=== PATIENT | male | born 1970 | race Caucasian/White ===

== ENCOUNTER 2017-09-01 20:25 | Emergency (ER) | payer MEDICAID, OTHER ==
[~2017-09-01] VITALS: Ht 167.6 cm; Wt 87.0 kg
[2017-09-01 23:37] LABS: BASOPHILS % 0.9 % (0.0-2.0); EOSINOPHILS % 1.2 % (0.0-5.0); HEMATOCRIT. 43.4 % (42.0-52.0); HEMOGLOBIN. 15.6 g/dL (14.0-18.0); LYMPHOCYTES % 22.6 % (20.0-50.0); MEAN CORPUSCULAR VOLUME 86.2 fL (80.0-94.0); MEAN PLATELET VOLUME 8.9 fl (7.4-10.4); MONOCYTES % 9.7 % (2.0-8.0); NEUTROPHILS % 65.6 % (40.0-76.0); PLATELET 141 x1000/uL (130-400); RED BLOOD CELL COUNT 5.04 mill/uL (4.7-6.1); RED CELL DISTRIBUTION WIDTH 13.6 % (11.6-14.6)
[2017-09-01 23:51] LABS: CARBON DIOXIDE 27 mEq/L (21-32); CHLORIDE 102 mEq/L (98-107); ETHANOL BLOOD < 10 mg/dL
[2017-09-02] MEDS ORDERED: CHLORDIAZEPOXIDE 25MG CAPSULE PO ONE
[2017-09-02 00:10] VITALS: BP 128/62
== END 2017-09-02 00:15 | disposition home or self-care (01) ==
LOC: ER 20:25
DX: F10.20 Alcohol dependence, uncomplicated (principal); Y90.0 Blood alcohol level of less than 20 mg/100 ml; R03.0 Elevated blood-pressure reading, without diagnosis of hypertension; E11.9 Type 2 diabetes mellitus without complications
CPT/HCPCS: 36415; 80053; 85025; 99284; G0482

== ENCOUNTER 2020-05-09 22:37 | Emergency (ER) | payer MEDICAID ==
[~2020-05-09] VITALS: Ht 160 cm; Wt 91.0 kg
[2020-05-10] MEDS ORDERED: SODIUM CHLORIDE 0.9% 1,000 ML IV ONE (01:00)
[2020-05-10] MEDS ORDERED: ONDANSETRON HCL 4MG/2ML INJ IV STA (01:00)
[2020-05-10 02:02] LABS: *AMPHETAMINES SCREEN URINE NEGATIVE (NEGATIVE); *BARBITURATES SCREEN URINE NEGATIVE (NEGATIVE); *BENZODIAZEPINES SCREEN URINE NEGATIVE (NEGATIVE); *COCAINE SCREEN URINE NEGATIVE (NEGATIVE); METHADONE URINE SCREEN NEGATIVE (NEGATIVE)
[2020-05-10 02:03] LABS: CANNABINOID URINE SCREEN NEGATIVE (NEGATIVE); OPIATES URINE SCREEN NEGATIVE (NEGATIVE); PHENCYCLIDINE URINE SCREEN NEGATIVE (NEGATIVE)
[2020-05-10 02:20] LABS: CHLORIDE 98 mEq/L (98-107)
[2020-05-10 02:24] LABS: ETHANOL BLOOD 78 mg/dL
[2020-05-10 02:28] LABS: CLARITY URINE CLEAR (CLEAR); COLOR URINE YELLOW (YELLOW); KETONES URINE TRACE (NEGATIVE); LEUKOCYTE ESTERASE URINE NEGATIVE (NEGATIVE); NITRITE URINE NEGATIVE (NEGATIVE); OCCULT BLOOD URINE TRACE (NEGATIVE); PROTEIN URINE 1+ (NEGATIVE); SPECIFIC GRAVITY URINE 1.023 (1.005-1.030); UROBILINOGEN URINE 0.2 E.U./dL (0.2-1.0)
[2020-05-10 02:31] LABS: BASOPHILS % 1.2 % (0.0-2.0); EOSINOPHILS % 0.6 % (0.0-5.0); HEMATOCRIT. 46.2 % (42.0-52.0); HEMOGLOBIN. 16.1 g/dL (14.0-18.0); LYMPHOCYTES % 18.8 % (20.0-50.0); MEAN CORPUSCULAR HEMOGLOBIN 32.4 pg (28.0-32.0); MEAN PLATELET VOLUME 9.7 fl (7.4-10.4); MONOCYTES % 12.4 % (2.0-8.0); PLATELET 106 x1000/uL (130-400); RED BLOOD CELL COUNT 4.97 mill/uL (4.7-6.1); RED CELL DISTRIBUTION WIDTH 14.1 % (11.6-14.6)
[2020-05-10] MEDS ORDERED: POTASSIUM CHLORIDE 20MEQ TABLET SR PO ONE (02:45)
[2020-05-10] MEDS ORDERED: CHLORDIAZEPOXIDE 10MG CAPSULE PO ONE (03:15)
[2020-05-10 03:55] VITALS: BP 160/77
== END 2020-05-10 03:56 | disposition home or self-care (01) ==
LOC: ER 22:37
DX: F10.239 Alcohol dependence with withdrawal, unspecified (principal); T51.0X1A Toxic effect of ethanol, accidental (unintentional), initial encounter; Y90.3 Blood alcohol level of 60-79 mg/100 ml; E11.9 Type 2 diabetes mellitus without complications
CPT/HCPCS: 36415; 80053; 80305; 80320; 81003; 83690; 85025; 96374; 99283; J2405; J7030; G0480

== ENCOUNTER 2021-10-27 11:03 | Inpatient (IN) | payer MEDICAID ==
[~2021-10-27] VITALS: Ht 165.1 cm; Wt 86.3 kg
[2021-10-27] MEDS ORDERED: ONDANSETRON HCL 4MG/2ML INJ IV NR (11:47)
[2021-10-27] MEDS ORDERED: MAGNESIUM/ALUMINUM HYDROXIDE/SIMETHICONE 30ML UDC PO NR (11:47)
[2021-10-27] MEDS ORDERED: SODIUM CHLORIDE 0.9% 1,000 ML IV ONE (12:00)
[2021-10-27 12:17] LABS: BASOPHILS % 0.5 % (0.0-2.0); HEMATOCRIT. 44.5 % (42.0-52.0); HEMOGLOBIN. 15.2 g/dL (14.0-18.0); LYMPHOCYTES % 7.3 % (20.0-50.0); MEAN CORPUSCULAR HEMOGLOBIN 29.9 pg (28.0-32.0); MEAN CORPUSCULAR VOLUME 87.2 fL (80.0-94.0); MEAN PLATELET VOLUME 9.2 fl (7.4-10.4); MONOCYTES % 10.8 % (2.0-8.0); NEUTROPHILS % 81.4 % (40.0-76.0); PLATELET 141 x1000/uL (130-400)
[2021-10-27 12:24] LABS: CHLORIDE 88 mEq/L (98-107)
[2021-10-27 12:29] LABS: ETHANOL BLOOD 14 mg/dL
[2021-10-27] MEDS ORDERED: VISCOUS LIDOCAINE 2% 15 ML UDC PO NR (12:30)
[2021-10-27 12:34] LABS: CREATINE KINASE 868 IU/L (39-308)
[2021-10-27] MEDS ORDERED: CHLORDIAZEPOXIDE 25MG CAPSULE PO NR (12:45)
[2021-10-27] MEDS ORDERED: INSULIN REGULAR (HUMULIN R) 300UNITS/3ML VIAL IV ONE (13:00)
[2021-10-27] MEDS ORDERED: LORAZEPAM 2MG/ML CPJ IV ONE (13:00)
[2021-10-27 17:22] LABS: CLARITY URINE CLEAR (CLEAR); COLOR URINE YELLOW (YELLOW); KETONES URINE NEGATIVE (NEGATIVE); LEUKOCYTE ESTERASE URINE NEGATIVE (NEGATIVE); NITRITE URINE NEGATIVE (NEGATIVE); OCCULT BLOOD URINE TRACE (NEGATIVE); PROTEIN URINE NEGATIVE (NEGATIVE); SPECIFIC GRAVITY URINE 1.009 (1.005-1.030); UROBILINOGEN URINE 0.2 E.U./dL (0.2-1.0)
[2021-10-27 17:34] LABS: *AMPHETAMINES SCREEN URINE NEGATIVE (NEGATIVE); *BARBITURATES SCREEN URINE NEGATIVE (NEGATIVE)
[2021-10-27 17:35] LABS: *BENZODIAZEPINES SCREEN URINE NEGATIVE (NEGATIVE); *COCAINE SCREEN URINE NEGATIVE (NEGATIVE); CANNABINOID URINE SCREEN NEGATIVE (NEGATIVE); METHADONE URINE SCREEN NEGATIVE (NEGATIVE); OPIATES URINE SCREEN NEGATIVE (NEGATIVE); PHENCYCLIDINE URINE SCREEN NEGATIVE (NEGATIVE)
[2021-10-28] VITALS (9 sets, daily range): BP systolic 116–153; BP diastolic 70–94
[2021-10-28] MEDS ORDERED: METF-873 PO (01:23)
[2021-10-28] MEDS ORDERED: ATOR20TA65 PO (01:23)
[2021-10-28] MEDS ORDERED: LISI2.5T47 PO (01:23)
[2021-10-28] MEDS ORDERED: DEXTROSE 50% WATER 50ML SYRINGE IV PRN (01:30)
[2021-10-28] MEDS: LISINOPRIL 20MG TABLET PO SCH (02:26)
[2021-10-28] MEDS: CHLORDIAZEPOXIDE 25MG CAPSULE PO SCH ×3 (05:42→21:06)
[2021-10-28] MEDS ORDERED: LOPERAMIDE HCL 2MG CAPSULE PO PRN (05:45)
[2021-10-28] MEDS: INSULIN LISPRO 100 UNITS/ML SUBCUT SCH ×4 (06:55→21:06)
[2021-10-28 06:56] LABS: BASOPHILS % 0.3 % (0.0-2.0); EOSINOPHILS % 0.3 % (0.0-5.0); HEMATOCRIT. 44.9 % (42.0-52.0); HEMOGLOBIN. 15.4 g/dL (14.0-18.0); LYMPHOCYTES % 14.7 % (20.0-50.0); MEAN CORPUSCULAR HEMOGLOBIN 29.4 pg (28.0-32.0); MEAN CORPUSCULAR VOLUME 86.2 fL (80.0-94.0); MONOCYTES % 12.9 % (2.0-8.0); NEUTROPHILS % 71.8 % (40.0-76.0); PLATELET 119 x1000/uL (130-400); RED BLOOD CELL COUNT 5.22 mill/uL (4.7-6.1); RED CELL DISTRIBUTION WIDTH 14.2 % (11.6-14.6)
[2021-10-28] MEDS: BLOOD SUGAR DIAGNOSTIC STRIP TEST SCH ×4 (07:10→21:07)
[2021-10-28] MEDS: MULTIVITAMINS,THER W-MINERALS TABLET PO SCH (08:05)
[2021-10-28] MEDS: ASPIRIN 81MG TABLET PO SCH (08:05)
[2021-10-28] MEDS: THIAMINE HCL 100MG TABLET PO SCH (08:05)
[2021-10-28] MEDS: FOLIC ACID 1MG TABLET PO SCH (08:05)
[2021-10-28] MEDS: METFORMIN HCL 500MG TABLET PO SCH ×2 (08:05→17:10)
[2021-10-28] MEDS ORDERED: INSULIN GLARGINE UD 100 UNITS/ML SYR SUBCUT SCH (10:00)
[2021-10-28] MEDS ORDERED: ATORVASTATIN CALCIUM 40MG TABLET PO SCH (21:00)
[2021-10-28] MEDS: INSULIN GLARGINE UD 100 UNITS/ML SYR SUBCUT SCH (21:41)
[2021-10-29] VITALS: BP 145/86
[2021-10-29 04:00] VITALS: BP_SYST 137; BP_SYST 99; BP_DIAS 72; BP_DIAS 76
[2021-10-29] MEDS: CHLORDIAZEPOXIDE 25MG CAPSULE PO SCH (05:35)
[2021-10-29] MEDS: INSULIN LISPRO 100 UNITS/ML SUBCUT SCH (06:10)
[2021-10-29] MEDS: BLOOD SUGAR DIAGNOSTIC STRIP TEST SCH (06:11)
[2021-10-29] MEDS ORDERED: THIA100T88 MT (08:03)
[2021-10-29] MEDS ORDERED: INSU100I28 SQ (08:03)
[2021-10-29] MEDS: FOLIC ACID 1MG TABLET PO SCH (08:17)
[2021-10-29] MEDS: ASPIRIN 81MG TABLET PO SCH (08:17)
[2021-10-29] MEDS: MULTIVITAMINS,THER W-MINERALS TABLET PO SCH (08:17)
[2021-10-29] MEDS: THIAMINE HCL 100MG TABLET PO SCH (08:17)
[2021-10-29] MEDS: METFORMIN HCL 500MG TABLET PO SCH (08:17)
[2021-10-29] MEDS: LISINOPRIL 20MG TABLET PO SCH (08:18)
[2021-10-29] MEDS: INSULIN GLARGINE UD 100 UNITS/ML SYR SUBCUT SCH (11:12)
== END 2021-10-29 11:30 | disposition left against medical advice (07) | DRG 770 ==
LOC: ER 11:32 → 8WST 17:20 → EDBEDREQ 17:52 → EDBEDREQTM 17:52 → ENRESERV 20:14
PROVIDERS: ADMIT Internal Medicine; ATTEND Internal Medicine
DX: F10.239 Alcohol dependence with withdrawal, unspecified (principal); R65.10 Systemic inflammatory response syndrome (SIRS) of non-infectious origin without acute organ dysfunction; E44.0 Moderate protein-calorie malnutrition; E87.8 Other disorders of electrolyte and fluid balance, not elsewhere classified; E87.1 Hypo-osmolality and hyponatremia; E11.65 Type 2 diabetes mellitus with hyperglycemia; E66.9 Obesity, unspecified; E78.5 Hyperlipidemia, unspecified; I10 Essential (primary) hypertension; Y90.0 Blood alcohol level of less than 20 mg/100 ml; R19.7 Diarrhea, unspecified; Z53.29 Procedure and treatment not carried out because of patient's decision for other reasons; Z68.31 Body mass index [BMI] 31.0-31.9, adult
CPT/HCPCS: 36415; 71045; 74176; 80053; 80061; 80305; 80320; 81003; 82010; 82140; 82550; 82962; 83036; 84443; 85025; 93005; 99291; J1815; J2060; J2405; G0480

== ENCOUNTER 2022-06-10 15:33 | Emergency (ER) | payer MEDICAID ==
[~2022-06-10] VITALS: Ht 167.6 cm; Wt 89.0 kg
[~2022-06-10 15:33] MED LIST: ATOR20TA65 PO; INSU100I28 SQ; LISI2.5T47 PO; METF-873 PO; THIA100T88 MT
[2022-06-10 15:49] VITALS: BP 152/82
[2022-06-10] MEDS ORDERED: SODIUM CHLORIDE 0.9% 1,000 ML IV ONE (22:00)
[2022-06-10] MEDS ORDERED: INSULIN LISPRO 100 UNITS/ML SUBCUT NR (22:15)
[2022-06-10 22:26] LABS: BASOPHILS % 0.9 % (0.0-2.0); HEMATOCRIT. 43.1 % (42.0-52.0); HEMOGLOBIN. 14.8 g/dL (14.0-18.0); LYMPHOCYTES % 24.4 % (20.0-50.0); MEAN CORPUSCULAR HEMOGLOBIN 30.2 pg (28.0-32.0); MEAN PLATELET VOLUME 8.7 fl (7.4-10.4); MONOCYTES % 7.8 % (2.0-8.0); NEUTROPHILS % 64.9 % (40.0-76.0); PLATELET 201 x1000/uL (130-400); RED BLOOD CELL COUNT 4.89 mill/uL (4.7-6.1); RED CELL DISTRIBUTION WIDTH 13.6 % (11.6-14.6)
[2022-06-10 22:33] LABS: CHLORIDE 97 mEq/L (98-107)
[2022-06-10 22:42] LABS: ETHANOL BLOOD 78 mg/dL
== END 2022-06-10 23:52 | disposition home or self-care (01) ==
LOC: ER 15:33
DX: E86.0 Dehydration (principal); R55 Syncope and collapse; E11.9 Type 2 diabetes mellitus without complications; F10.229 Alcohol dependence with intoxication, unspecified; Y90.3 Blood alcohol level of 60-79 mg/100 ml; Z79.84 Long term (current) use of oral hypoglycemic drugs
CPT/HCPCS: 36415; 80053; 80320; 82962; 84484; 85025; 93005; 96372; 99284; J1815; J7030; G0480

== ENCOUNTER 2023-01-05 08:36 | Emergency (ER) | payer MEDICAID ==
[~2023-01-05] VITALS: Ht 167.6 cm; Wt 100.0 kg
[2023-01-05] MEDS ORDERED: IBUP-2028 MT (10:10)
[2023-01-05] MEDS ORDERED: ACETAMINOPHEN 325MG TABLET PO ONE (10:15)
[2023-01-05] MEDS ORDERED: IBUPROFEN 400MG TABLET PO ONE (10:15)
[2023-01-05] MEDS ORDERED: SODIUM CHLORIDE 0.9% 1,000 ML IV ONE (11:00)
[2023-01-05] MEDS ORDERED: METOCLOPRAMIDE HCL 10MG/2ML VIAL IV ONE (11:00)
[2023-01-05] MEDS ORDERED: DIPHENHYDRAMINE 50MG/ML VIAL IV ONE (11:00)
[2023-01-05] MEDS ORDERED: KETOROLAC 15MG/ML VIAL IV ONE (11:00)
[2023-01-05 11:25] VITALS: BP 204/98
[2023-01-05 11:33] LABS: BASOPHILS % 0.7 % (0.0-2.0); EOSINOPHILS % 1.1 % (0.0-5.0); HEMATOCRIT. 42.3 % (42.0-52.0); HEMOGLOBIN. 14.7 g/dL (14.0-18.0); LYMPHOCYTES % 26.9 % (20.0-50.0); MEAN CORPUSCULAR VOLUME 86.3 fL (80.0-94.0); MEAN PLATELET VOLUME 8.9 fl (7.4-10.4); MONOCYTES % 6.6 % (2.0-8.0); NEUTROPHILS % 64.7 % (40.0-76.0); PLATELET 222 x1000/uL (130-400); RED BLOOD CELL COUNT 4.91 mill/uL (4.7-6.1); RED CELL DISTRIBUTION WIDTH 13.6 % (11.6-14.6)
[2023-01-05 11:46] LABS: CHLORIDE 103 mEq/L (98-107)
[2023-01-05 11:55] LABS: ETHANOL BLOOD 187 mg/dL
== END 2023-01-05 15:17 | disposition home or self-care (01) ==
LOC: ER 08:36
DX: R51.9 Headache, unspecified (principal); I10 Essential (primary) hypertension; F10.229 Alcohol dependence with intoxication, unspecified; E11.9 Type 2 diabetes mellitus without complications; Y90.6 Blood alcohol level of 120-199 mg/100 ml; Z79.899 Other long term (current) drug therapy
CPT/HCPCS: 36415; 71045; 80053; 80320; 82962; 83880; 84484; 85025; 96361; 96374; 96375; 99284; J1200; J1885; J2765; J7030; Z7610; G0480